=== PATIENT | male | born 1985 | race Caucasian/White ===

== ENCOUNTER 2016-06-11 04:56 | Emergency (ER) | payer OTHER ==
[2016-06-11 05:26] VITALS: TEMP 97.6; BMI 26.2
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
--- NOTE | 2016-06-11 05:45 | PDOC ---
*Physical Exam - Vital Signs Last Vital Signs Temp Pulse Resp BP Pulse Ox 97.6 F 62 18 130/75 100 06/11/16 05:19 06/11/16 05:19 06/11/16 05:19 06/11/16 05:19 06/11/16 05:19 Medical Decision Making - Medical Decision Making 06/11/16 05:45 agree with care from HEENA Lopez *DC/Admit/Observation/Transfer Diagnosis at time of Disposition: Musculoskeletal pain - Discharge Dispostion Disposition: HOME Condition at time of disposition: Good - Patient Instructions Printed Discharge Instructions: How To Perform RICE (Rest, Ice, Compress, Elevate), DI for Musculoskeletal Pain Additional Instructions: Discharge Instructions: -Take Tylenol or Motrin for pain if needed -Follow RICE instructions -Return to the ER with any worsening or concerning symptoms
[2016-06-11] MEDS ORDERED: ACETAMINOPHEN 325 MG TABLET (FP) PO ONE (06:36)
[2016-06-11] MEDS ORDERED: ACETAMINOPHEN 325 MG TABLET (FP) ONE (06:41)
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
[2016-06-11 08:41] VITALS: BP 130/71; PULSE 68
== END 2016-06-11 08:41 | disposition home or self-care (01) ==
LOC: JER 04:56
DX: M79.1 Myalgia (principal); Z87.891 Personal history of nicotine dependence
CPT/HCPCS: 71020-TC; 71101-TC; 99282-25

== ENCOUNTER 2020-10-21 11:55 | Emergency (ER) | payer BC, OTHER ==
[2020-10-21 12:06] VITALS: BMI 27.1
[2020-10-21] MEDS ORDERED: IBUPROFEN 600 MG TABLET (FP) PO ONE (12:49)
[2020-10-21] MEDS ORDERED: IBUPROFEN 400 MG TABLET (FP) PO ONE (12:55)
[2020-10-21 14:21] VITALS: BP 112/79; PULSE 50; TEMP 98.2
== END 2020-10-21 14:22 | disposition home or self-care (01) ==
LOC: JER 11:55
DX: M94.0 Chondrocostal junction syndrome [Tietze] (principal); M79.10 Myalgia, unspecified site
CPT/HCPCS: 71046-TC-FY; 93005; 93010; 99284-25